=== PATIENT | male | born 1970 | race Caucasian/White ===

== ENCOUNTER 2018-09-09 15:50 | Emergency (ER) | payer OTHER ==
[~2018-09-09] VITALS: Ht 172.7 cm; Wt 83.9 kg
[2018-09-09 15:58] VITALS: BP 138/92
--- NOTE | 2018-09-09 16:14 | NUR ---
PT AMBULATED TO ER BED 2
--- NOTE | 2018-09-09 16:20 | NUR ---
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 PT IS AAOX4, VSS AT THIS TIME, ICE AND ELEVATION TO RIGHT HAND APPLIED. BED DOWN, LOW LOCKED, BEDRAIL UP X 1, ER MD AWARE AND NOTIFIED OF PT STATUS. HX--DENIES RX--NONE
--- NOTE | 2018-09-09 17:14 | NUR ---
Patient being evaluated by physician at bedside.
[2018-09-09] MEDS ORDERED: IBUPROFEN 800 MG TAB PO ONE (17:15)
[2018-09-09] MEDS ORDERED: traMADol 50 MG TAB PO ONE (17:15)
--- NOTE | 2018-09-09 17:28 | NUR ---
SHOULDER IMMOBILIZER/SLING APPLIED TO PT RIGHT ARM
[2018-09-09 18:55] VITALS: BP 137/84
--- NOTE | 2018-09-09 18:55 | NUR ---
Patient discharged with v/s stable. Written and verbal after care instructions given and explained. Patient alert, oriented and verbalized understanding of instructions. Ambulatory with steady gait. All questions addressed prior to discharge. ID band removed. Patient advised to follow up with PMD. Rx of TRAMADOL HYDROCHLORIDE 50MG AND MOTRIN 800MG given. Patient educated on indication of medication including possible reaction and side effects. Opportunity to ask questions provided and answered.
== END 2018-09-09 18:55 | disposition home or self-care (01) ==
LOC: MED 15:50
DX: S62.231A Other displaced fracture of base of first metacarpal bone, right hand, initial encounter for closed fracture (principal); W20.8XXA Other cause of strike by thrown, projected or falling object, initial encounter; Y93.89 Activity, other specified; Y92.89 Other specified places as the place of occurrence of the external cause; Y99.0 Civilian activity done for income or pay
CPT/HCPCS: 73130; 99283

== ENCOUNTER 2022-03-07 18:53 | Emergency (ER) | payer OTHER ==
[~2022-03-07] VITALS: Ht 172.7 cm; Wt 79.8 kg
[2022-03-07 19:04] VITALS: BP 136/79
[2022-03-07] MEDS ORDERED: IBUPROFEN 600 MG TAB PO ONE (19:45)
--- NOTE | 2022-03-07 19:48 | NUR ---
PT TAKEN TO RAD
--- NOTE | 2022-03-07 20:01 | NUR ---
51 y/o male, pt states he fell on head 4 days ago, pt states "I felt like I knocked out". pt states he started having swelling on left knee and pain has been increasing. denies blurry vision, nausea or vomiting. pmh: denies nka med: ibuprofen
[2022-03-07] MEDS ORDERED: NAPR-54 PO (20:33)
--- NOTE | 2022-03-07 20:39 | NUR ---
Patient discharged with v/s stable BY DR. MORGAN Written and verbal after care instructions given and explained. Patient verbalized understanding. Ambulatory with steady gait. All questions addressed prior to discharge. Advised to follow up with PMD.
--- NOTE | 2022-03-07 20:39 | NUR ---
PER MD ORDER AN ARTURO WRAP WAS APPLIED TO THE LEFT KNEE. +CMS BEFORE/AFTER. PT DID NOT COMPLAIN OF ANY PAIN OR DISCOMFORT. ERMD NOTIFIED.
== END 2022-03-07 20:35 | disposition home or self-care (01) ==
LOC: MED 18:53
DX: S83.92XA Sprain of unspecified site of left knee, initial encounter (principal); S09.90XA Unspecified injury of head, initial encounter; W18.30XA Fall on same level, unspecified, initial encounter; Y93.89 Activity, other specified; Y92.89 Other specified places as the place of occurrence of the external cause; Y99.8 Other external cause status
CPT/HCPCS: 70450; 73562; 99284

== ENCOUNTER 2022-03-10 11:14 | Emergency (ER) | payer OTHER ==
[~2022-03-10] VITALS: Ht 172.7 cm; Wt 81.6 kg
[~2022-03-10 11:14] MED LIST: NAPR-54 PO
[2022-03-10 11:21] VITALS: BP 147/68
[2022-03-10] MEDS ORDERED: cefTRIAXone 1,000 MG in LIDOCAINE MPF 1% 2.1 ML IM ONE (16:05)
--- NOTE | 2022-03-10 16:09 | NUR ---
ATTEMPTED TO BRING PT BACK, NOT FOUND IN LOBBY/OUTSIDE
--- NOTE | 2022-03-10 16:17 | NUR ---
ATTEMPTED TO BRING PT BACK, NOT FOUND IN LOBBY/OUTSIDE.
--- NOTE | 2022-03-10 16:27 | NUR ---
ATTEMPTED TO CALL PT VIA TELEPHONE. NO ANSWER.
--- NOTE | 2022-03-10 16:27 | NUR ---
PATIENT ELOPED FROM FACILITY. DISCHARGE INSTRUCTIONS NOT GIVEN TO PATIENT. DR. JOHNSON NOTIFIED.
== END 2022-03-10 16:09 | disposition left against medical advice (07) ==
LOC: MED 11:14
DX: L03.116 Cellulitis of left lower limb (principal); Z79.899 Other long term (current) drug therapy
CPT/HCPCS: 99281